=== PATIENT | male | born 1980 | race Two or more races ===

== ENCOUNTER 2021-09-01 18:32 | Emergency (ER) | payer MEDICAID, OTHER ==
[2021-09-01 19:58] LABS: Urine Bacteria NONE SEEN /hpf (None Seen); Urine Blood Negative /uL (Negative); Urine Specific Gravity 1.021 (1.001-1.035); Urine WBC <1 /hpf (0 - 3)
[2021-09-01 22:21] LABS: Basophils # (auto) 0 10 ^3/uL (0-0.2); Basophils % (auto) 0.5 % (0.0-2.0); Eosinophils # (auto) 0.1 10 ^3/uL (0-0.8); Eosinophils % (auto) 1.8 % (0.0-7.0); Hematocrit 45.7 % (41.0-53.0); Hemoglobin 15.5 g/dL (13.5-17.5); Lymphocytes # (auto) 2.7 10 ^3/uL (0.4-5.4); Lymphocytes % (auto) 39.2 % (10.0-50.0); Mean Corpuscular Hemoglobin 29.3 pg (28.0-32.0); Mean Corpuscular Hgb Conc. 33.8 g/dL (32.0-36.0); Mean Corpuscular Volume 86.6 fL (80.0-100.0); Monocytes # (auto) 0.6 10 ^3/uL (0-1.3); Monocytes % (auto) 8.1 % (0.0-12.0); Neutrophils # (auto) 3.5 10 ^3/uL (1.6-8.6); Neutrophils % (auto) 50.4 % (37.0-80.0); Nucleated Red Blood Cells % 0.1 %; Red Blood Cells 5.28 10^6/uL (4.5-5.90); Red Cell Distribution Width 13.6 % (11.8-14.3)
[2021-09-02 00:19] LABS: Albumin 3.6 g/dL (3.4-5.0); BUN/Creatinine Ratio 24.7; Calcium 8.9 mg/dL (8.5-10.1); Potassium 4.1 mmol/L (3.5-5.1)
[2021-09-02 00:20] VITALS: BP 132/80
[2021-09-02 00:21] LABS: Bilirubin, Total 1.3 mg/dL (0.2-1.0); Total Protein 7.7 g/dL (6.4-8.2)
== END 2021-09-02 01:03 | disposition home or self-care (01) ==
LOC: ER 18:34
DX: R10.84 Generalized abdominal pain (principal); R19.7 Diarrhea, unspecified
CPT/HCPCS: 36415; 74176; 80053; 81001; 83690; 85025

== ENCOUNTER 2023-06-15 20:37 | Emergency (ER) | payer MEDICAID ==
[~2023-06-15] VITALS: Ht 170.2 cm; Wt 96.8 kg
[2023-06-15 23:46] VITALS: BP 121/85; PULSE 80; RESP 18; TEMP 97.5; O2SAT 97
== END 2023-06-16 00:30 | disposition home or self-care (01) ==
LOC: ER 20:37
DX: R51.9 Headache, unspecified (principal); R42 Dizziness and giddiness; V43.52XA Car driver injured in collision with other type car in traffic accident, initial encounter; Y93.89 Activity, other specified; Y92.89 Other specified places as the place of occurrence of the external cause; Y99.8 Other external cause status